=== PATIENT | male | born 1985 | race Caucasian/White ===

== ENCOUNTER 2024-05-29 22:16 | Emergency (ER) | payer MEDICAID ==
[~2024-05-29] VITALS: Ht 172.7 cm; Wt 61.0 kg
[2024-05-30] MEDS ORDERED: QUET150T2 PO (00:10)
[2024-05-30 01:40] VITALS: BP 133/91; PULSE 69; RESP 18; TEMP 98.1; O2SAT 100
[2024-05-30] MEDS: QUEtiapine FUMARATE 100 MG TAB PO ONE (01:42)
[2024-05-30] MEDS: NYSTATIN TOPICAL POWDER 15GM TOP ONE (01:42)
== END 2024-05-30 01:49 | disposition home or self-care (01) ==
LOC: ER 22:16
DX: M79.672 Pain in left foot (principal); M79.671 Pain in right foot; F20.9 Schizophrenia, unspecified; F17.210 Nicotine dependence, cigarettes, uncomplicated; F15.90 Other stimulant use, unspecified, uncomplicated; Z76.0 Encounter for issue of repeat prescription; Z59.00 Homelessness unspecified